=== PATIENT | male | born 1945 | race Caucasian/White ===

== ENCOUNTER 2017-03-10 16:11 | Emergency (ER) | payer OTHER ==
[~2017-03-10] VITALS: Ht 165.1 cm; Wt 103.9 kg
[~2017-03-10 16:11] MED LIST: ASPI81TA28 PO; LSN20 PO; MELO7.5T5 PO; METO50TA7 PO; TEMA15CA4 PO
[2017-03-10 16:26] VITALS: TEMP 36.4; Ht 165.1 cm; Wt 103.9 kg
[2017-03-10] MEDS ORDERED: TRAMADOL HCL 50 MG TAB PO STA (17:57)
[2017-03-10] MEDS ORDERED: LIDODERM (LIDOCAINE) PATCH 5% TD STA (17:57)
[2017-03-10] MEDS ORDERED: KETOROLAC TROMETHAMINE 60 MG/2 ML VIAL IM STA (17:57)
[2017-03-10] MEDS ORDERED: DEXAMETHASONE SOD INJ 10 MG/ML VIAL IM ONE (18:00)
[2017-03-10] MEDS ORDERED: ACET650S10 (18:00)
[2017-03-10] MEDS ORDERED: TRAMADOL HCL 50 MG HOME PACK PO ONE (18:00)
--- NOTE | 2017-03-10 18:00 | EMERGENCY ROOM VISIT NOTE ---
History Report prepared by John: Briseyda Wright Under the Supervision of: Dr. Cedric Urias M.D. First contact with patient: 17:46 Chief Complaint: LEG PAIN,LEG INJURY Stated Complaint: RT BACK OF LEG PAIN History of Present Illness The patient is a 71 year old male who presents to the Emergency Room with complaints of persistent right leg pain starting 3 weeks ago. The pain started after the patient fell backwards into a trailer while he was smoothing out some ruts in his driveway. His notes that he has also been shoveling big rocks recently. The pain goes down the back of his right leg into his toes. He has been taking Tylenol for the pain. He is able to walk. The pain is not that bad in the morning, but worsens throughout the day. He does not have any other complaints. He has a history of arthritis. He is "on the border" of being diabetic. Source of History: patient, spouse/significant other Onset: 3 weeks ago Position: leg (right) Quality: other (pain) Timing: other (persistent) Modifying Factors (Worsening): other (throughout the day) Modifying Factors (Relieving): other (in the morning) Associated Symptoms: No back pain Review of Systems See HPI for pertinent positives & negatives. A total of 10 systems reviewed and were otherwise negative. Past Medical & Surgical Medical Problems: (1) Arthritis (2) Parkinson disease Surgical Problems: (1) Post-operative state Family History No pertinent family history stated. Social History Smoking Status: Never Smoker Marital Status: Housing Status: lives with family Occupation Status: retired Current/Historical Medications Scheduled Aspirin (Aspirin Ec), 81 MG PO DAILY Lidocaine (Lidoderm Patch 5%), 1 PATCH TD DAILY Lisinopril (Lisinopril), 20 MG PO DAILY Meloxicam (Mobic), 7.5 MG PO DAILY Metoprolol Succ (Toprol Xl) (Toprol-Xl), 50 MG PO DAILY Temazepam (Restoril), 15 MG PO HS Scheduled PRN Tramadol (Ultram), 1-2 TABS PO Q6 PRN for Pain Miscellaneous Medications Acetaminophen (Tylenol) Allergies Uncoded Allergies: Oxycodone IR (Adverse Reaction, Intermediate, DELIRIUM, 01/22/15) Physical Exam Vital Signs Date Time Temp Pulse Resp B/P (MAP) Pulse Ox O2 Delivery O2 Flow Rate FiO2 10/4/17 19:35 69 17 200/100 94 03/10/17 16:26 36.4 81 20 199/88 98 Room Air Physical Exam GENERAL: Patient is a healthy-appearing well-nourished male HEAD: Normocephalic atraumatic EYES: Ocular movements intact pupils equal and react to light OROPHARYNX mucous membranes are moist no exudates present no erythema or edema present NECK: Supple no nuchal rigidity CHEST: Good equal expansion LUNGS: Clear and equal to auscultation CARDIAC: Normal S1 and S2 ABDOMEN: Soft nontender no guarding BACK: No CVA tenderness EXTREMITIES: Point tenderness to the posterior of the right proximal femur. Able to walk on the leg. Good ROM of the hip free from pain. NEURO: Patient is following commands and answering questions appropriately. Alert and oriented x3 Cranial Nerves 2-12 grossly intact Medical Decision & Procedures ER Provider Diagnostic Interpretation: X-ray results as stated below per interpretation by me and the radiologist: PELVIS 1 OR 2 VIEW ROUTINE, R FEMUR 2 VIEWS ROUTINE HISTORY: 71 years-old Male Pt c/o Rt hip pain acute right hip pain without known trauma. 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 The bones are mildly demineralized. Proliferative marginal spurring involves the right greater than left greater tuberosities. No acute fracture or dislocation is identified. Advanced degenerative changes involve the lower lumbar spine. Vascular calcifications are noted. FEMUR: Moderate tricompartmental osteoarthritis of the knee. No acute fracture or dislocation. IMPRESSION: 1. No acute fracture or dislocation of the pelvis or right femur. 2. Severe right and moderate left hip osteoarthritis. The above report was generated using voice recognition software. It may contain grammatical, syntax or spelling errors. Electronically signed by: Tobias Rodriguez M.D. 03/10/2017 6:45 PM Dictated Date/Time: 03/10/2017 6:42 PM Laboratory Results Test 03/10/17 18:42 Bedside Glucose 72 mg/dl (70-99) Labs reviewed by ED physician. Medications Administered Medications (Trade) Dose Ordered Sig/Margaret Route Start Time Stop Time Status Last Admin Dose Admin Dexamethasone Sodium Phosphate (Decadron Inj) 10 mg NOW ONCE IM 03/10/17 18:00 03/10/17 18:01 DC 03/10/17 18:43 10 MG Ketorolac Tromethamine (Toradol Inj) 60 mg NOW STAT IM 03/10/17 17:57 03/10/17 18:00 DC 03/10/17 18:45 60 MG Lidocaine (Lidoderm Patch 5%) 1 patch NOW STAT TD 03/10/17 17:57 03/10/17 18:00 DC 03/10/17 18:42 1 PATCH Tramadol HCl (Ultram Tab) 50 mg NOW STAT PO 03/10/17 17:57 03/10/17 18:00 DC 03/10/17 18:44 50 MG Tramadol HCl (Ultram Home Pack) 1 homepack UD ONCE PO 03/10/17 18:00 03/10/17 18:01 DC 03/10/17 19:33 1 HOMEPACK ED Course 1747: Past medical records reviewed. The patient was evaluated in room C12B. A complete history and physical examination was performed. 1757: Ultram Tab 50 mg PO, Lidocaine 1 patch TD, Toradol Inj 60 mg IM. 1800: Tramadol HCl 1 homepack PO, Decadron Inj 10 mg IM. 1900: Upon reexamination the patient is resting comfortably. I discussed results and treatment plan with the patient. He verbalizes agreement and understanding. The patient is ready for discharge. Medical Decision Differential diagnosis: Etiologies such as fracture, dislocation, neurovascular compromise, compartment syndrome, soft tissue injury, as well as others were entertained. This is a 71-year-old male who presents emergency department complaining of right sciatica pain. The patient irritated this several weeks ago. He is asking for pain medication. The patient is able to walk on the leg and does not demonstrate any weakness. I do believe he is suffering from sciatica and for this reason he was given Decadron. He has a normal blood sugar here in the emergency department. He was also given Ultram as well as a Lidoderm patch. X- rays do not show any evidence of acute fracture dislocation. The patient does have a large amount of arthritis in that hip. Based on this finding I will have the patient follow-up with [facility] orthopedics. Patient and are in agreement with the treatment plan. Medication Reconcilliation Current Medication List: was personally reviewed by me Blood Pressure Screening Patient's blood pressure: Elevated blood pressure Blood pressure disposition: Referred to PCP Impression Primary Impression: Sciatica without back pain Scribe Attestation The scribe's documentation has been prepared under my direction and personally reviewed by me in its entirety. I confirm that the note above accurately reflects all work, treatment, procedures, and medical decision making performed by me. Departure Information Dispostion Home / Self-Care Prescriptions Lidocaine (Lidoderm Patch 5%) 1 Ea Tdsy 1 PATCH TD DAILY for 30 Days, #30 PATCH Prov: Cedric Urias MD 03/10/17 Tramadol (Ultram) 50 Mg Tab 1-2 TABS PO Q6 Y for Pain, #14 TAB Prov: Cedric Urias MD 03/10/17 Referrals Darwin Villalba M.D. (PCP) Danielito Christianson M.D. Forms HOME CARE DOCUMENTATION FORM, IMPORTANT VISIT INFORMATION Patient Instructions ED Sciatica, My [facility] Additional Instructions Follow up with Dr Christianson's office You were found to have an elevated blood pressure today (>120 sytolic or >90 diastolic). Per medicare guidelines, you need to follow up with this blood pressure screening with your Primary Care Physician (PCP). For a new PCP call [phone]. Take 1000 mg Tylenol every 6 hours Take Ultram for breakthrough pain You have been examined and treated today on an emergency basis only. This is not a substitute for, or an effort to provide, complete comprehensive medical care. It is impossible to recognize and treat all injuries or illnesses in a single emergency department visit. It is therefore important that you follow up closely with Dr Villalba. Call as soon as possible for an appointment. Thank you for your time and consideration. I look forward to speaking with you again soon. Please don't hesitate to call us if you have any questions. Problem Qualifiers Primary Impression: Sciatica without back pain Laterality: right Qualified Codes: M54.31 - Sciatica, right side
--- NOTE | 2017-03-10 18:47 | DIAGNOSTIC IMAGING REPORT ---
PELVIS 1 OR 2 VIEW ROUTINE, R FEMUR 2 VIEWS ROUTINE HISTORY: 71 years-old Male Pt c/o Rt hip pain acute right hip pain without known trauma. 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 The bones are mildly demineralized. Proliferative marginal spurring involves the right greater than left greater tuberosities. No acute fracture or dislocation is identified. Advanced degenerative changes involve the lower lumbar spine. Vascular calcifications are noted. FEMUR: Moderate tricompartmental osteoarthritis of the knee. No acute fracture or dislocation. IMPRESSION: 1. No acute fracture or dislocation of the pelvis or right femur. 2. Severe right and moderate left hip osteoarthritis. The above report was generated using voice recognition software. It may contain grammatical, syntax or spelling errors. Electronically signed by: Tobias Rodriguez M.D. 03/10/2017 6:45 PM Dictated Date/Time: 03/10/2017 6:42 PM
[2017-03-10] MEDS ORDERED: NF656 TD (19:12)
[2017-03-10] MEDS ORDERED: TRAM-10 PO (19:12)
[2017-03-10 19:35] VITALS: BP 200/100; PULSE 69; O2SAT 94
== END 2017-03-10 19:35 | disposition home or self-care (01) ==
LOC: C.EDB 16:11 → C.EDC 19:35
DX: M54.31 Sciatica, right side (principal); M19.90 Unspecified osteoarthritis, unspecified site; G20 Parkinson's disease; Z79.82 Long term (current) use of aspirin; Z79.899 Other long term (current) drug therapy

== ENCOUNTER 2021-12-23 10:36 | Inpatient (IN) ==
[2021-12-23] MEDS ORDERED: ALBUT/IPRATROP 3MG/0.5MG NEB 3 ML VIAL NEB STA (10:42)
[2021-12-23 11:16] LABS: Hematocrit (blood only) 46.9 % (40.1-51.0); Hemoglobin 15.1 g/dl (14.0-18.0); Mean Corpuscular Hemoglobin 28.7 pg (25.0-34.0); Mean Corpuscular Hgb Conc 32.2 g/dL (32.0-36.0); Mean Corpuscular Volume 89.2 fL (80.0-100.0); Mean Platelet Volume 9.9 fL (9.4-12.4); Platelet Count 344 K/uL (130-400); RDW Coefficient of Variation 14.1 % (11.5-14.5); RDW Standard Deviation 45.6 fL (36.4-46.3); Red Blood Count 5.26 M/uL (4.63-6.08); White Blood Count 17.34 K/ul (4.8-10.8)
--- NOTE | 2021-12-23 11:17 | Emergency Department Note ---
Impression & Plan Acute respiratory failure with hypoxia, Lactic acidosis, ST elevation myocardial infarction (STEMI), Acidemia, Leukocytosis ED Provider Note NAME: CHLOÉ MORE AGE: 76 SEX: M ARRIVES VIA: Ambulance INFORMANT: Patient, , EMS ED PROVIDER(S): Chapito Blair MD CHIEF COMPLAINT: Shortness of breath, chest pain. PLAN: Disposition: Admit MEDICAL DECISION MAKING: The patient is a pleasant 76-year-old gentleman with a past medical history of hypertension who presents to the emergency department critically ill via EMS for acute respiratory failure with hypoxia. EMS was called to the home because of worsening breathing and chest pain/pressure in the chest that the patient was complaining of this morning around 9 AM. The patient's symptoms occur in the setting of having increased cough, congestion wheezing over the past several days in the setting of being at camp and black motion and we admits he suspects he got excessive smoke exposure. They did arrange for a primary care doctor's appointment for his cough and chest pain associated with the cough and her to be seen this Wednesday. However last night he was feeling worse and this morning was uncomfortable and took his blood pressure per his and noticed it was 180/100s. He then attempted to lay down to go back to sleep and became acutely short of breath and EMS called. Patient's reports he began to appear blue and was minimally responsive though she still noticed a pulse. EMS found the patient to be hypoxic to 60% and did respond 200% O2 via nonrebreather. He was given DuoNeb for wheezing on exam. He was given nitroglycerin x2 for his chest pain however aspirin was not administered due to concern for aspiration. He was trialed on CPAP but was not able to tolerate this and was brought to emergency department on nonrebreather. This provider discussed case with EMS crew via medical command COVERAGE SPECIALIST RN. The patient was denies any symptoms of exertional chest pain prior to his respiratory illness. He denies measured fevers. On arrival, the patient is in acute respiratory distress. Temp 35.9 orally. Respiratory rate in the 30s blood pressure 80s/70s and O2 97% on 100%. Skin diaphoretic, clammy, mottled. Lungs with scattered rhonchi and expiratory wheezes bilaterally, right greater than left. He was transitioned to BiPAP with inline DuoNeb and his respiratory status immediately improved. Patient did complain ongoing chest pain, which was reproducible upon palpation of CW. I did perform a limited bedside cardiac ultrasound and lung ultrasound which demonstrated suspicion for moderate-to severely reduced LV function. There is asymmetric US B-lines right greater than left suggestive of pneumonia versus asymmetric pulmonary edema. EKG demonstrates question of afib vs atrial ectopic rhythm with new RBBB and question of subtle anterior ST elevation. WBC 17.3K with neutrophil predominance and left shift. H/H 15.1/46.9. Platelets wnl. Chemistry without acidosis. Electrolytes unremarkable. LFTs without significant abnormality. Troponin negative/undetectable. VBG with pH of 7.18 and PCO2 of 53 prior to initiation of Bipap. Following approximately 1 hour of Bipap ABG performed and demonstrated improved acidemia to 7.34 with component of respiratory compensation with pCO fo 27. Base deficit persists at 11. Chemistry with Agap metabolic acidosis/lactic acidosis with lactate of 8, Agap 17 and bicarbonate of 19. Creatinine of 1.48 without recent values for comparison. Sodium corrects to 134 given glucose of 340. Initial HS troponin 4K. LFTs witho ut significant abnormalities. Lipase wnl. Procalcitonin is not significantly elevated. Covid-19 RNA, NAAT negative. Blood cultures drawn and empiric ABX (Cefepime/Vancomycin) ordered given report of several days of preceding cough and congestion. 324mg ASA given. While respiratory status had improved BP began to decline to 70s/50s. Patient was given IVF cautiously while monitoring respiratory status which the patient tolerated for a respiratory standpoint. 30cc/kg deferred given picture of CHF and likely will require diuresis. There was only transient/marginal response to IVF and so levophed ordered. Given EKG with evidence of new systolic heart failure case was discussed with Dr. Garg on-call. Appreciate consultation/assistance at the bedside. We agree with plan for cathlab intervention given evidence of acute-subacute CO. Dr. Garg reviewed with Dr. Choudhury, interventional cardiology and patient was taken to label maker for urgent procedure. BP improved to 89/70 (MAP 70s) with respiratory status stable on minimal Levophed. Patient and his were updated and agree with plan. Case was also discussed with Dr. Fong, [facility] [place], who evaluated the patient at the bedside for anticipated admission following cathlab intervention. Following transfer to the cathlab, assistance was requested by Dr. Choudhury for elective intubation for airway protection given cardiogenic shock with findings of 100% LAD occlusion and severe multi-vessel disease requiring transfer to tertiary care center for CABG. Intubation performed per procedure note below. Triage Nursing notes reviewed and agree them. Prior medical records reviewed Vital Signs: reviewed and remarkable for hypotension, hypoxia, tachypnea. Differential diagnosis: Reactive airway disease, pneumonia, pneumothorax, COPD, CHF, infections, cardiac ischemia, pulmonary embolism, musculoskeletal, gastrointestinal, as well as other pathologies. ER treatment provided: See below. Diagnostics interpreted by me: ECG: Question of atrial fibrillation versus atrial ectopic rhythm, 66 bpm, right bundle branch block, subtle ST elevation. QTc 511, QRS 170 Cardiac Monitoring: An order for continuous cardiac monitoring was placed and demonstrated question of atrial fibrillation versus atrial ectopic rhythm, 66 bpm, PACs Laboratory studies: See below Imaging studies: See below Consultation(s): Dr. Garg, [place] cardiology on-call. Dr. Fong, [facility] [place]. [place] Choudhury, Interventional cardiology. HPI: The patient is a pleasant 76-year-old gentleman with a past medical history of hypertension who presents to the emergency department critically ill via EMS for acute respiratory failure with hypoxia. EMS was called to the home because of worsening breathing and chest pain/pressure in the chest that the patient was complaining of this morning around 9 AM. The patient's symptoms occur in the setting of having increased cough, congestion wheezing over the past several days in the setting of being at camp and black motion and we admits he suspects he got excessive smoke exposure. They did arrange for a primary care doctor's appointment for his cough and chest pain associated with the cough and her to be seen this Wednesday. However last night he was feeling worse and this morning was uncomfortable and took his blood pressure per his and noticed it was 180/100s. He then attempted to lay down to go back to sleep and became acutely short of breath and EMS called. Patient's reports he began to appear blue and was minimally responsive though she still noticed a pulse. EMS found the patient to be hypoxic to 60% and did respond 200% O2 via nonrebreather. He was given DuoNeb for wheezing on exam. He was given nitroglycerin x2 for his chest pain however aspirin was not administered due to concern for aspiration. He was trialed on CPAP but was not able to tolerate this and was brought to emergency department on nonrebreather. This provider discussed case with EMS crew via medical command COVERAGE SPECIALIST RN. The patient was denies any symptoms of exertional chest pain prior to his respiratory illness. He denies measured fevers. ROS: See above HPI for pertinent positives & negatives. A total of 10 systems reviewed and were otherwise negative. VITALS:See Below PHYSICAL EXAMINATION: GENERAL: Awake, alert, ill-appearing, in no distress HENT: Normocephalic, atraumatic. Oropharynx with dry mucous membranes and otherwise unremarkable. EYES: Normal conjunctiva. Sclera non-icteric. NECK: Supple. No nuchal rigidity. FROM. No JVD. RESPIRATORY: Scattered rhonchi and expiratory wheezes bilaterally, right greater than left. Increased WOB with accessory muscle use. CARDIAC: Regular rate, irregular rhythm. Extremities cool, clammy, mottled. Pulses equal. ABDOMEN: Soft, non-distended. No tenderness to palpation. No rebound or guarding. No masses. RECTAL: Deferred. MUSCULOSKELETAL: Chest examination reveals reproducible anterior CW tenderness. The back is symmetrical on inspection without obvious abnormality. There is no CVA tenderness to palpation. No joint edema. LOWER EXTREMITIES: Calves are equal size bilaterally and non-tender. No edema. No discoloration. NEURO: Normal sensorium. No sensory or motor deficits noted. SKIN: Diaphoretic. Clammy. Mottled. No rash or jaundice noted. ED COURSE: Procedures: Endotracheal Intubation Indication: elective intubation for airway protection for cardiogenic shock. The patient was on 100% oxygen via Bipap prior to the procedure. Suction, airway equipment, RSI drugs, respiratory equipment, and appropriate personnel were prepared prior to the initiation of the procedure. Induction was performed with Etomidate and paralysis with Succinylcholine. After observing the clinical benefit of the medications, the airway was easily visualized utilizing a Mac 3 GlideScope. A 7.5 size ETT tube was placed atraumatically to 22 cm using standard technique. The cuff inflated without signs of malfunction. There were bilateral breath sounds, positive colormetric change, no gastric sounds, a good capnography waveform. Post procedure pulse oximetry was variable 75-85% in the setting of hemodynamic instability. Tube placement confirmed on fluoro. Sedation per Cathlab team. Critical Care: I have personally spent greater than 95 minutes of critical care time in the direct management of this patient. This includes bedside care, interpretation of diagnostic studies, and testing, discussion with consultants, patient, and family members, and other required patient management activities. This 95 minutes is in excess of all separately billable procedures. Chapito Blair MD Past Med/Surg History Medical History (Updated 12/23/21 @ 22:55 by Chapito Blair MD) Arthritis Gonzalez's palsy Cervical spine fracture 2004 - s/p ORIF [facility] Chewing tobacco nicotine dependence Essential hypertension History of alcoholism Parkinson disease vs chronic benign tremor Type 2 diabetes mellitus Surgical History (Updated 12/23/21 @ 13:20 by Tiburcio Fong) H/O cervical spine surgery History of carpal tunnel release History of total left knee replacement S/P appendectomy Family History (Updated 12/23/21 @ 13:17 by Tiburcio Fong) Father Coronary heart disease Mother Brain cancer Brother Cancer Brother Suicide Social History (Updated 12/23/21 @ 13:18 by Tiburcio Fong) Smoking Status: Never smoker Tobacco Type: Smokeless Tobacco (Dip or Chew) Hx Alcohol Use: Yes Alcohol type: beer Alcohol type Comment: 1 case/day x many years; quit 30+ years ago Preferred Language: Greek marital status: Current Living Situation: Spouse Current Living Situation Comment: lives with in [facility] current occupational status: retired current occupation: worked for [employer] How many Children do You have: 2 Feels Safe at Home: Yes Allergies Allergies Allergy/AdvReac Type Severity Reaction Status Date / Time oxycodone [From OxyIR] AdvReac Severe Delirium Unverified 12/23/21 11:44 Home Meds Home Medications Medication Instructions Recorded Confirmed amlodipine 10 mg tablet 10 mg PO QAM 12/23/21 12/23/21 lisinopril 40 mg tablet 40 mg PO BID 12/23/21 12/23/21 meloxicam 15 mg tablet 15 mg PO QAM 12/23/21 12/23/21 metformin 500 mg tablet 500 mg PO BIDM 12/23/21 12/23/21 metoprolol succinate 50 mg 50 mg PO QAM 12/23/21 12/23/21 tablet,extended release 24 hr phenylephrine HCl 10 mg tablet 10 mg PO QAM 12/23/21 12/23/21 (Sudafed PE) temazepam 15 mg capsule 15 mg PO HS PRN Insomnia 12/23/21 12/23/21 Results & Data (ED) Vital Signs Vital Signs - 24 hr 12/23/21 10:44 12/23/21 10:45 12/23/21 10:45 Temperature 35.9 C L Temperature Source Axillary Pulse Rate 62 Pulse Rate [Apical] Respiratory Rate 29 H Respiratory Effort / Characteristics Labored Respiratory Depth Shallow Respiratory Pattern Blood Pressure 89/70 L Blood Pressure [Left Arm] Blood Pressure Mean 76 Blood Pressure Mean [Left Arm] Pulse Oximetry 92 91 Oxygen Delivery Method Non-rebreather Non-rebreather Oxygen Flow Rate 15 15 Fraction of Inspired Oxygen Sepsis Recent Fever Within 48 Hours Yes Sepsis New/Unexplained Change in Mental Status No Sepsis Action Taken by Nursing Physician Notified 12/23/21 11:04 12/23/21 11:04 12/23/21 11:18 Temperature Temperature Source Pulse Rate 64 Pulse Rate [Apical] 58 L 66 Respiratory Rate 23 26 H 26 H Respiratory Effort / Characteristics Spontaneous Spontaneous Respiratory Depth Normal Respiratory Pattern Blood Pressure Blood Pressure [Left Arm] 80/51 L Blood Pressure Mean Blood Pressure Mean [Left Arm] 60 Pulse Oximetry 97 97 94 Oxygen Delivery Method BiPAP CPAP Oxygen Flow Rate Fraction of Inspired Oxygen 60 60 Sepsis Recent Fever Within 48 Hours Sepsis New/Unexplained Change in Mental Status Sepsis Action Taken by Nursing 12/23/21 12:30 12/23/21 12:33 12/23/21 12:36 Temperature Temperature Source Pulse Rate 64 62 Pulse Rate [Apical] 65 Respiratory Rate 23 23 27 H Respiratory Effort / Characteristics Spontaneous Respiratory Depth Respiratory Pattern Tachypnea Blood Pressure 89/70 L Blood Pressure [Left Arm] 89/70 L Blood Pressure Mean Blood Pressure Mean [Left Arm] 76 Pulse Oximetry 94 94 100 Oxygen Delivery Method CPAP CPAP Oxygen Flow Rate Fraction of Inspired Oxygen 100 Sepsis Recent Fever Within 48 Hours Sepsis New/Unexplained Change in Mental Status Sepsis Action Taken by Nursing Laboratory Data Attestation: I reviewed the patient's lab results. Result diagrams: 12/23/21 14:28 12/23/21 14:28 Lab Results 12/23/21 12/23/21 12/23/21 Range/Units 10:56 11:00 11:00 WBC 17.34 H (4.8-10.8) K/ul RBC 5.26 (4.63-6.08) M/uL Hgb 15.1 (14.0-18.0) g/dl POC Hgb (14.0-18.0) g/dl Hct 46.9 (40.1-51.0) % POC Hct (42-52) % MCV 89.2 (80.0-100.0) fL MCH 28.7 (25.0-34.0) pg MCHC 32.2 (32.0-36.0) g/dL RDW Std Deviation 45.6 (36.4-46.3) fL RDW Coeff of Suy[place] 14.1 (11.5-14.5) % Plt Count 344 (130-400) K/uL MPV 9.9 (9.4-12.4) fL Immature Gran % (Auto) 0.7 % Neut % (Auto) 58.9 % Lymph % (Auto) 30.3 % Borden % (Auto) 7.5 % Eos % (Auto) 2.1 % Baso % (Auto) 0.5 % Neut # (Auto) 10.21 H (1.4-6.5) K/uL Lymph # (Auto) 5.25 H (1.2-3.4) K/uL Borden # (Auto) 1.30 H (0.24-0.82) K/uL Eos # (Auto) 0.37 (0-0.50) K/uL Baso # (Auto) 0.09 (0-0.2) K/uL Immature Gran # (Auto) 0.12 H (0.00-0.02) K/uL Echinocytes 1+ POC pH (7.35-7.45) POC pCO2 (35-46) mmHg POC pO2 (80-95) mmHg POC HCO3 (19-24) nav/L POC Total CO2 (24-31) mmol/L POC Base Excess (-9-1.8) nav/L POC ABG O2 Sat (90-95) % VBG pH (7.36-7.41) VBG pCO2 (38-50) mmHg VBG pO2 mmHg VBG HCO3 mmol/L VBG O2 Saturation % VBG Base Excess mEq/L POC Sodium (135-144) mmol/L Sodium 128 L (136-145) mmol/L POC Potassium (3.3-5.0) mmol/L Potassium 3.2 L (3.5-5.1) mmol/L Chloride 92 L (98-107) mmol/L Carbon Dioxide 19 L (21-32) mmol/L Anion Gap 17 H (3-11) BUN 10 (6-23) mg/dl Creatinine 1.48 H (0.6-1.4) mg/dl Est Cr Clr Drug Dosing Not Reportable Est GFR ( Amer) 52.9 ml/min Est GFR (Non-Af Amer) 45.6 ml/min BUN/Creatinine Ratio 6.8 L (10-20) Glucose 340 H* (70-99(Fasting)) mg/dl Lactate (0.4-2.0) mmol/L Calcium 10.2 H (8.5-10.1) mg/dl Phosphorus 4.7 (2.5-4.9) mg/dl Magnesium 1.9 (1.7-2.4) mg/dl Total Bilirubin 0.7 (0.2-1.0) mg/dl AST 56 H (13-39) U/L ALT 24 (7-52) U/L Alkaline Phosphatase 111 H (34-104) U/L Total Creatine Kinase (30-223) U/L Troponin I High Sens 4078.8 H* (0-20) pg/ml Total Protein 7.0 (6.0-8.3) gm/dl Albumin 3.9 (3.4-5.0) gm/dl Globulin 3.1 (2.5-4.0) gm/dl Albumin/Globulin Ratio 1.3 (0.9-2) Lipase 41 (11-82) U/L Procalcitonin (0-0.5) ng/ml SARS-CoV-2, RNA, NAAT NEGATIVE (NEGATIVE) 12/23/21 12/23/21 12/23/21 Range/Units 11:00 11:01 11:01 WBC (4.8-10.8) K/ul RBC (4.63-6.08) M/uL Hgb (14.0-18.0) g/dl POC Hgb (14.0-18.0) g/dl Hct (40.1-51.0) % POC Hct (42-52) % MCV (80.0-100.0) fL MCH (25.0-34.0) pg MCHC (32.0-36.0) g/dL RDW Std Deviation (36.4-46.3) fL RDW Coeff of Suyapa (11.5-14.5) % Plt Count (130-400) K/uL MPV (9.4-12.4) fL Immature Gran % (Auto) % Neut % (Auto) % Lymph % (Auto) % Borden % (Auto) % Eos % (Auto) % Baso % (Auto) % Neut # (Auto) (1.4-6.5) K/uL Lymph # (Auto) (1.2-3.4) K/uL Borden # (Auto) (0.24-0.82) K/uL Eos # (Auto) (0-0.50) K/uL Baso # (Auto) (0-0.2) K/uL Immature Gran # (Auto) (0.00-0.02) K/uL Echinocytes POC pH (7.35-7.45) POC pCO2 (35-46) mmHg POC pO2 (80-95) mmHg POC HCO3 (19-24) nav/L POC Total CO2 (24-31) mmol/L POC Base Excess (-9-1.8) nav/L POC ABG O2 Sat (90-95) % VBG pH (7.36-7.41) VBG pCO2 (38-50) mmHg VBG pO2 mmHg VBG HCO3 mmol/L VBG O2 Saturation % VBG Base Excess mEq/L POC Sodium (135-144) mmol/L Sodium (136-145) mmol/L POC Potassium (3.3-5.0) mmol/L Potassium (3.5-5.1) mmol/L Chloride (98-107) mmol/L Carbon Dioxide (21-32) mmol/L Anion Gap (3-11) BUN (6-23) mg/dl Creatinine (0.6-1.4) mg/dl Est Cr Clr Drug Dosing Est GFR ( Amer) ml/min Est GFR (Non-Af Amer) ml/min BUN/Creatinine Ratio (10-20) Glucose (70-99(Fasting)) mg/dl Lactate 8.0 H* (0.4-2.0) mmol/L Calcium (8.5-10.1) mg/dl Phosphorus (2.5-4.9) mg/dl Magnesium (1.7-2.4) mg/dl Total Bilirubin (0.2-1.0) mg/dl AST (13-39) U/L ALT (7-52) U/L Alkaline Phosphatase (34-104) U/L Total Creatine Kinase 271 H (30-223) U/L Troponin I High Sens (0-20) pg/ml Total Protein (6.0-8.3) gm/dl Albumin (3.4-5.0) gm/dl Globulin (2.5-4.0) gm/dl Albumin/Globulin Ratio (0.9-2) Lipase (11-82) U/L Procalcitonin 0.07 (0-0.5) ng/ml SARS-CoV-2, RNA, NAAT (NEGATIVE) 12/23/21 12/23/21 Range/Units 11:01 12:05 WBC (4.8-10.8) K/ul RBC (4.63-6.08) M/uL Hgb (14.0-18.0) g/dl POC Hgb 13.6 L (14.0-18.0) g/dl Hct (40.1-51.0) % POC Hct 40 L (42-52) % MCV (80.0-100.0) fL MCH (25.0-34.0) pg MCHC (32.0-36.0) g/dL RDW Std Deviation (36.4-46.3) fL RDW Coeff of Suy[place] (11.5-14.5) % Plt Count (130-400) K/uL MPV (9.4-12.4) fL Immature Gran % (Auto) % Neut % (Auto) % Lymph % (Auto) % Borden % (Auto) % Eos % (Auto) % Baso % (Auto) % Neut # (Auto) (1.4-6.5) K/uL Lymph # (Auto) (1.2-3.4) K/uL Borden # (Auto) (0.24-0.82) K/uL Eos # (Auto) (0-0.50) K/uL Baso # (Auto) (0-0.2) K/uL Immature Gran # (Auto) (0.00-0.02) K/uL Echinocytes POC pH 7.34 L (7.35-7.45) POC pCO2 27 L (35-46) mmHg POC pO2 80 (80-95) mmHg POC HCO3 15 L (19-24) nav/L POC Total CO2 16 L (24-31) mmol/L POC Base Excess -11.0 L (-9-1.8) nav/L POC ABG O2 Sat 95.0 (90-95) % VBG pH 7.18 L (7.36-7.41) VBG pCO2 53 H (38-50) mmHg VBG pO2 28 mmHg VBG HCO3 20 mmol/L VBG O2 Saturation < 60.0 % VBG Base Excess -8.9 mEq/L POC Sodium 126 L (135-144) mmol/L Sodium (136-145) mmol/L POC Potassium 3.3 (3.3-5.0) mmol/L Potassium (3.5-5.1) mmol/L Chloride (98-107) mmol/L Carbon Dioxide (21-32) mmol/L Anion Gap (3-11) BUN (6-23) mg/dl Creatinine (0.6-1.4) mg/dl Est Cr Clr Drug Dosing Est GFR ( Amer) ml/min Est GFR (Non-Af Amer) ml/min BUN/Creatinine Ratio (10-20) Glucose (70-99(Fasting)) mg/dl Lactate (0.4-2.0) mmol/L Calcium (8.5-10.1) mg/dl Phosphorus (2.5-4.9) mg/dl Magnesium (1.7-2.4) mg/dl Total Bilirubin (0.2-1.0) mg/dl AST (13-39) U/L ALT (7-52) U/L Alkaline Phosphatase (34-104) U/L Total Creatine Kinase (30-223) U/L Troponin I High Sens (0-20) pg/ml Total Protein (6.0-8.3) gm/dl Albumin (3.4-5.0) gm/dl Globulin (2.5-4.0) gm/dl Albumin/Globulin Ratio (0.9-2) Lipase (11-82) U/L Procalcitonin (0-0.5) ng/ml SARS-CoV-2, RNA, NAAT (NEGATIVE) Administered Medications Discontinued Medications Albuterol (Albut/Ipratrop 3mg/0.5mg Neb 3 Ml Vial) 3 ml NEB NOW STA; Protocol Stop: 12/23/21 10:43 Last Admin: 12/23/21 11:03 Dose: 3 ml Documented By: RAÚL Aspirin (Aspirin Chew 324 Mg) 324 mg PO NOW STA Stop: 12/23/21 11:52 Last Admin: 12/23/21 12:10 Dose: 324 mg Documented By: MYRNA Fentanyl Citrate (Fentanyl Citrate 100 Mcg/2 Ml Vial) Confirm Administered Dose 100 mcg .ROUTE .STK-MED ONE Stop: 12/23/21 12:22 Last Increment: 12/23/21 15:40 Dose: 50 mcg Documented By: ADOLFO Fentanyl Citrate (Fentanyl Citrate 100 Mcg/2 Ml Vial) Confirm Administered Dose 100 mcg .ROUTE .STK-MED ONE Stop: 12/23/21 13:53 Last Admin: 12/23/21 15:41 Dose: 100 mcg Documented By: ADOLFO Fentanyl Citrate (Fentanyl Citrate 100 Mcg/2 Ml Vial) Confirm Administered Dose 100 mcg .ROUTE .STK-MED ONE Stop: 12/23/21 15:09 Last Admin: 12/23/21 15:42 Dose: 100 mcg Documented By: ADOLFO Cefepime HCl (Maxipime) 2,000 mg in 20 mls @ 5 mls/min IV NOW STA; Protocol Stop: 12/23/21 11:36 Last Admin: 12/23/21 11:39 Dose: 5 mls/min Documented By: MYRNA Norepinephrine Bitartrate (Levophed/D5w) 4 mg in 250 mls @ 20.569 mls/hr IV .[id number] DARRELL; Protocol Stop: 01/22/22 11:44 Last Admin: 12/23/21 11:52 Dose: 0.05 mcg/kg/min, 20.6 mls/hr Documented By: MYRNA Co-signed By: EBONY Acetaminophen (Ofirmev) 1,000 mg in 100 mls @ 400 mls/hr IV NOW STA Stop: 12/23/21 12:06 Last Admin: 12/23/21 12:11 Dose: 400 mls/hr Documented By: MYRNA Midazolam HCl (Midazolam Hcl 1 Mg/Ml 2ml Vial) Confirm Administered Dose 2 mg .ROUTE .STK-MED ONE Stop: 12/23/21 12:22 Last Increment: 12/23/21 15:41 Dose: 1 mg Documented By: [facility] Midazolam HCl (Midazolam Hcl 1 Mg/Ml 2ml Vial) Confirm Administered Dose 2 mg .ROUTE .STK-MED ONE Stop: 12/23/21 13:51 Last Admin: 12/23/21 15:41 Dose: 2 mg Documented By: [facility] Midazolam HCl (Midazolam Hcl 1 Mg/Ml 2ml Vial) Confirm Administered Dose 2 mg .ROUTE .STK-MED ONE Stop: 12/23/21 14:13 Last Admin: 12/23/21 15:42 Dose: 2 mg Documented By: [facility] Midazolam HCl (Midazolam Hcl 1 Mg/Ml 2ml Vial) Confirm Administered Dose 2 mg .ROUTE .STK-MED ONE Stop: 12/23/21 14:52 Last Admin: 12/23/21 15:42 Dose: 2 mg Documented By: [facility] Midazolam HCl (Midazolam Hcl 1 Mg/Ml 2ml Vial) Confirm Administered Dose 2 mg .ROUTE .STK-MED ONE Stop: 12/23/21 15:09 Last Admin: 12/23/21 15:42 Dose: 2 mg Documented By: [facility] Imaging Data Radiologist's Impression: Chest X-Ray 12/23/21 10:40 SINGLE VIEW CHEST CLINICAL HISTORY: Atypical chest pain. FINDINGS: An AP, portable, upright chest radiograph is compared to study dated 08/14/2014. The examination is degraded by portable technique and apical lordotic positioning. The heart is enlarged. There is pulmonary vascular congestion. There are asymmetric airspace opacities, right greater than left. Small pleural effusions are suggested with bibasilar consolidation. No pneumothorax is seen. The skeletal structures are osteopenic. The bony thorax is grossly intact. Fusion hardware is noted in the cervical spine. IMPRESSION: 1. Cardiomegaly with evidence of congestive failure. 2. Slightly asymmetric bilateral airspace opacities likely represent pulmonary edema. Correlate clinically for evidence of a superimposed infectious/inflammatory pneumonitis. 3. Small pleural effusions. ACT 112: Negative or not required by law. Electronically signed by: Alexis Sharpe M.D. 12/23/2021 11:26 AM Discharge Plan Visit Data Chief Complaint: Cardiac Assessment Stated Complaint: Chest Pain, SOB ED Provider: Chapito Blair Discharge Problem: Acute respiratory failure with hypoxia, Lactic acidosis, ST elevation myoc ardial infarction (STEMI), Acidemia, Leukocytosis Patient Disposition: Admitted As Inpatient Discharge Instructions Interventions: ED Discharge Assessment Last Done: 12/23/21 12:33
[2021-12-23 11:20] LABS: Base Excess VBG -8.9 mEq/L; HCO3 VBG 20 mmol/L; Oxygen Saturation VBG < 60.0 %; PCO2 VBG 53 mmHg (38-50); PO2 VBG 28 mmHg; pH VBG 7.18 (7.36-7.41)
--- NOTE | 2021-12-23 11:29 | XRay Report ---
SINGLE VIEW CHEST CLINICAL HISTORY: Atypical chest pain. FINDINGS: An AP, portable, upright chest radiograph is compared to study dated 08/14/2014. The examina tion is degraded by portable technique and apical lordotic positioning. The heart is enlarged. There is pulmonary vascular congestion. There are asymmetric airspace opacities, right greater than left. S mall pleural effusions are suggested with bibasilar consolidation. No pneumothorax is seen. The skele jason structures are osteopenic. The bony thorax is grossly intact. Fusion hardware is noted in the cer vical spine. IMPRESSION: 1. Cardiomegaly with evidence of congestive failure. 2. Slightly asymmetric bilateral airspace opacities likely represent pulmonary edema. Correlate clini karen for evidence of a superimposed infectious/inflammatory pneumonitis. 3. Small pleural effusions. ACT 112: Negative or not required by law. Electronically signed by: Alexis Sharpe M.D. 12/23/2021 11:26 AM
[2021-12-23] MEDS ORDERED: VANCOMYCIN CONSULT ACTIVE PRN (11:33)
[2021-12-23] MEDS ORDERED: VANCOMYCIN HCL 2,750 MG in SODIUM CHLORIDE 0.9% 500 ML IV ONE (11:33)
[2021-12-23] MEDS ORDERED: CEFEPIME 2,000 MG/20 ML VIAL IV STA (11:33)
[2021-12-23 11:42] LABS: Alanine Aminotransferase 24 U/L (7-52); Albumin Globulin Ratio 1.3 (0.9-2); Albumin Level 3.9 gm/dl (3.4-5.0); Alkaline Phosphatase 111 U/L (34-104); Anion Gap 17 (3-11); Aspartate Aminotransferase 56 U/L (13-39); BUN Creatinine Ratio 6.8 (10-20); Bilirubin,Total 0.7 mg/dl (0.2-1.0); Blood Urea Nitrogen 10 mg/dl (6-23); Calcium 10.2 mg/dl (8.5-10.1); Carbon Dioxide 19 mmol/L (21-32); Chloride 92 mmol/L (98-107); Est GFR (African American) 52.9 ml/min; Est GFR (Non-African American) 45.6 ml/min; Globulin 3.1 gm/dl (2.5-4.0); Glucose 340 mg/dl (70-99(Fasting)); Lipase 41 U/L (11-82); Magnesium 1.9 mg/dl (1.7-2.4); Phosphorus 4.7 mg/dl (2.5-4.9); Potassium 3.2 mmol/L (3.5-5.1); Sodium 128 mmol/L (136-145)
[2021-12-23] MEDS ORDERED: STAT IV Infusion **Titration per Protocol STA ×3 (11:45→14:29)
[2021-12-23] MEDS ORDERED: NOREPINEPHRINE/D5W 4 MG/250 ML PLCT IV SCH (11:45)
[2021-12-23 11:47] LABS: Troponin I High Sensitivity 4078.8 pg/ml (0-20)
[2021-12-23] MEDS ORDERED: ASPIRIN CHEW 324 MG PO STA (11:51)
[2021-12-23] MEDS ORDERED: ACETAMINOPHEN 1,000 MG/100 ML VIAL IV STA (11:52)
[2021-12-23 11:53] LABS: Basophils # (auto) 0.09 K/uL (0-0.2); Basophils % (auto) 0.5 %; Echinocytes 1+; Eosinophils # (auto) 0.37 K/uL (0-0.50); Eosinophils % (auto) 2.1 %; Immature Granulocytes # (auto) 0.12 K/uL (0.00-0.02); Immature Granulocytes % (auto) 0.7 %; Lymphocytes # (auto) 5.25 K/uL (1.2-3.4); Lymphocytes % (auto) 30.3 %; Monocytes % (auto) 7.5 %; Neutrophils # (auto) 10.21 K/uL (1.4-6.5); Neutrophils % (auto) 58.9 %
--- NOTE | 2021-12-23 12:03 | History & Physical Report ---
Date of Service December 23, 2021 Assessment & Plan (1) Acute myocardial infarction: Plan: History and clinical presentation is c/w acute PA/ACS with resulting cardiogenic shock. He is s/p asa, nitro. He continues with ongoing chest pain and is critically ill. He is going to the clinical laboratory scientist for emergency cardiac catheterization by Dr Chris Choudhury. Cath findings will dictate his cardiac care plan. Once post-cath and in the ICU obtain urgent echo to assess LV function and wall motion. Serial troponins. MANDEEP, BB, and CCB all will be on hold due to his shock. Check lipids and Hba1C in the am. Defer additional Rx to cardiology & ICU attendings. (2) Cardiogenic shock: Plan: 2nd to #1. Defer pressor/inotropic Rx to ICU attending & cardiology. Levophed started in ER with improvement in MAP to about 65 just prior to his heart catheterization. Hold all home BP meds. I do not believe there is any element of septic shock. Procal is negative. Leukocytosis is likely 2nd to #1. Consider random cortisol level to be complete. (3) Acute CHF: Plan: Clinically & radiographically he has evidence of acute systolic CHF. See #1 and #2 above. Defer Rx to cardiology/ICU attending. (4) Acute respiratory failure with hypoxia and hypercapnia: Plan: 2nd to #1, #2, #3. #2 has led to severe lactic acidosis. He will need serial lactates. Currently he is comfortable on BIPAP. Repeat ABG shows improvement in his acid- base status and pCO2. I cannot rule out that intubation/mech ventilation will be needed, however. Either way he will be admitted to ICU. Defer respiratory management to ICU attending. I have low suspicion for pulmonary infection at this time thus will defer on ongoing IV antibiotics. (5) Hyponatremia: Plan: Multifactorial including "pseudohyponatremia" (corrected Na is 133), mild ANDREY, and acute CHF. Treat the cardiac issues. Sodium level should improve with time. Serial BMPs. (6) Acute kidney injury: Plan: ATN/Cardiorenal in the setting of #1, #2. Treat the cardiac issues, support the low BP with pressors, cardiac cath for revascularization, etc. At high risk of worsening renal function given his multiorgan failure. Serial BMPs will be needed. (7) Lactic acidosis: Plan: 2nd to above. Repeat lactate upon ICU admission will be needed. (8) Hypokalemia: Plan: Replace with KCL 20meq IV x 1 now and serial rechecks. mag level noted to be normal. (9) Type 2 diabetes mellitus: Plan: ICU glycemic protocol. Check HbA1C. (10) Essential hypertension: Plan: Hold all home BP meds. Will ultimately need BB, MANDEEP or ARB resumed, etc. (11) Chewing tobacco nicotine dependence: Plan: Consider low-dose nicoderm patch if desired. (12) Parkinson disease: Plan: vs benign tremor. medical record states he has a dx of PD, but I don't see any formal assessment by neurology to confirm such diagnosis. either way nothing acute at this time. (13) DVT prophylaxis: Plan: defer med selection to ICU attending (14) Abnormal EKG: Plan: I am uncertain if there is an element of transient AV block (Mobitz). If present this is secondary to ischemia and should improve with revascularization via heart cath. Monitor carefully; defer any additional Rx to cardiology. Plan extensively updated at bedside care d/w ICU attending, Dr Yoder, and cardiology attending, Dr Garg total critical care time 60 minutes including complex care coordination of this critically ill gentleman History of Present Illness Chief Complaint: severe shortness of breath, chest pain Primary Care Provider: Darwin Villalba 76yo male with prior h/o alcoholism - sober x 30+ years; HTN; T2DM; chronic tremor; and chronic tobacco use (chewing tobacco) presents from home via EMS with 10/10 chest pain and severe shortness of breath. Symptoms actually began about 1 week while he & his family were camping at [facility]. He noted dyspnea on exertion with minimal activity throughout most of last week. He has a chronic cough but it has been unchanged. No fevers or chills. Sometime last week he developed intermittent exertional chest pain/pressure. This occurred several times each day. He did not tell his or family about the symptoms. [place] from the park on afternoon and his noted that the dyspnea on exertion was quite severe. He had to stop to catch his breath with carrying items to their car. Wednesday AM about 0200 he experienced an episode of chest pressure - central - and thought it was indigestion. Thus he took an OTC stomach aid for such. Then, over the weekend, the symptoms kept reoccurring - LEHMAN with chest pressure/pain, relieved with rest. On Wednesday he noted right arm discomfort/numbness that was fairly persistent. This is unusual for him. He did not have any left arm pain, jaw pain, or neck pain. He did have sweats with episodes of chest discomfort/dyspnea. This AM his symptoms peaked and he was in significant respiratory distress. His states he looked [place]/severely pale/ashen. He was having active chest pain/pressure. 911 was called about this time and EMS was summoned to his home. Apparently his BP had been very high this am - 180s or higher. When EMS arrived 100% nonrebreather was applied and he was given 2 SL nitros for his chest pain. Upon ER arrival his SBP was in the 80s. Levophed was ordered, and BIPAP was applied for his respiratory distress and respiratory acidosis. Asa 325mg x 1 along with albuterol was administered. IV antibiotics were also given in the event he had an element of pneumonia. STAT cardiology consult was called and Dr Nir Garg from [facility] advised emergency cardiac catheterization for concern of acute PA/ACS. Allergies Allergy/AdvReac Type Severity Reaction Status Date / Time oxycodone [From OxyIR] AdvReac Severe Delirium Unverified 12/23/21 11:44 Home Medications Medication Instructions Recorded Confirmed Type amlodipine 10 mg tablet 10 mg PO QAM 12/23/21 12/23/21 History lisinopril 40 mg tablet 40 mg PO BID 12/23/21 12/23/21 History meloxicam 15 mg tablet 15 mg PO QAM 12/23/21 12/23/21 History metformin 500 mg tablet 500 mg PO BIDM 12/23/21 12/23/21 History metoprolol succinate 50 mg 50 mg PO QAM 12/23/21 12/23/21 History tablet,extended release 24 hr phenylephrine HCl 10 mg tablet 10 mg PO QAM 12/23/21 12/23/21 History (Sudafed PE) temazepam 15 mg capsule 15 mg PO HS PRN Insomnia 12/23/21 12/23/21 History Past Med/Surg History Medical History (Updated 12/23/21 @ 13:48 by Tiburcio Fong) Arthritis Gonzalez's palsy Cervical spine fracture 2004 - s/p ORIF [facility] [place] Chewing tobacco nicotine dependence Essential hypertension History of alcoholism Parkinson disease vs chronic benign tremor Type 2 diabetes mellitus Surgical History (Updated 12/23/21 @ 13:20 by Tiburcio Fong) H/O cervical spine surgery History of carpal tunnel release History of total left knee replacement S/P appendectomy Family History (Updated 12/23/21 @ 13:17 by Tiburcio Fong) Father Coronary heart disease Mother Brain cancer Brother Cancer Brother Suicide Social History (Updated 12/23/21 @ 13:18 by Tiburcio Fong) Smoking Status: Never smoker Tobacco Type: Smokeless Tobacco (Dip or Chew) Hx Alcohol Use: Yes Alcohol type: beer Alcohol type Comment: 1 case/day x many years; quit 30+ years ago Preferred Language: Italian marital status: Current Living Situation: Spouse Current Living Situation Comment: lives with in [place] current occupational status: retired current occupation: worked for [employer] How many Children do You have: 2 Feels Safe at Home: Yes Review of Systems Review of Systems: gen - no fevers, no chills; "poor" appetite per , but no change in this chronic issue; no weight changes eyes - no recent visual changes HENT - no dysphagia; no ear pain or sore throat; +chronic congestion neck - chronic pain CV - numerous episodes of exertional chest pain x several days pulm - chronic cough; severe LEHMAN this week GI - mild nausea but no emesis; no abd pain - no voiding symptoms musculo - right arm pain yesterday/today neuro - chronic tremor; right arm numbness yesterday endo - BSGs < 200 per skin - no rash Physical Exam Physical Exam: gen - looks unwell, mild pallor, BIPAP in place, mild tachypnea eyes - PERRL mouth - BIPAP mask in place, MMM neck - ?JVD present but difficult to tell because of BIPAP straps, no masses CV - RRR, s1 s2, no obvious murmur lungs - mild bibasilar fine rales, mild tachypnea, no retractions abd - protuberant/mildly distended, BS+, mildly tender high epigastric region, no HSM ext - no edema, cool to touch, pulses <1+ b/l neuro - no focal motor weakness, 5/5 strength upper & lower extremities, DTRs 2+ b/l skin - no rash psych - awake, alert lymph - no cervical lymph nodes musculo - scar over L knee Results & Data Results & Data ([facility]) Vital Signs (Past 12 Hours) Vital Signs Temp Pulse Pulse Resp BP BP Pulse Ox 12/23/21 11:18 66 26 H 80/51 L 94 12/23/21 11:04 64 26 H 97 12/23/21 11:04 58 L 23 97 12/23/21 10:45 35.9 C L 62 29 H 89/70 L 91 12/23/21 10:44 92 O2 Del Method O2 Flow Rate FiO2 12/23/21 11:18 CPAP 12/23/21 11:04 60 12/23/21 11:04 BiPAP 60 12/23/21 10:45 Non-rebreather 15 12/23/21 10:44 Non-rebreather 15 Laboratory Results Laboratory Results - last 24 hr 12/23/21 12/23/21 12/23/21 10:56 11:00 11:00 WBC 17.34 H RBC 5.26 Hgb 15.1 POC Hgb Hct 46.9 POC Hct MCV 89.2 MCH 28.7 MCHC 32.2 RDW Std Deviation 45.6 RDW Coeff of Suy[place] 14.1 Plt Count 344 MPV 9.9 Immature Gran % (Auto) 0.7 Neut % (Auto) 58.9 Lymph % (Auto) 30.3 Roosevelt % (Auto) 7.5 Eos % (Auto) 2.1 Baso % (Auto) 0.5 Neut # (Auto) 10.21 H Lymph # (Auto) 5.25 H Roosevelt # (Auto) 1.30 H Eos # (Auto) 0.37 Baso # (Auto) 0.09 Immature Gran # (Auto) 0.12 H Blood Smear Review Pending Echinocytes 1+ POC pH POC pCO2 POC pO2 POC HCO3 POC Total CO2 POC Base Excess POC ABG O2 Sat VBG pH VBG pCO2 VBG pO2 VBG HCO3 VBG O2 Saturation VBG Base Excess POC Sodium Sodium 128 L POC Potassium Potassium 3.2 L Chloride 92 L Carbon Dioxide 19 L Anion Gap 17 H BUN 10 Creatinine 1.48 H Est Cr Clr Drug Dosing Not Reportable Est GFR ( Amer) 52.9 Est GFR (Non-Af Amer) 45.6 BUN/Creatinine Ratio 6.8 L Glucose 340 H* Lactate Calcium 10.2 H Phosphorus 4.7 Magnesium 1.9 Total Bilirubin 0.7 AST 56 H ALT 24 Alkaline Phosphatase 111 H Total Creatine Kinase Troponin I High Sens 4078.8 H* Total Protein 7.0 Albumin 3.9 Globulin 3.1 Albumin/Globulin Ratio 1.3 Lipase 41 Procalcitonin SARS-CoV-2, RNA, NAAT NEGATIVE 12/23/21 12/23/21 12/23/21 11:00 11:01 11:01 WBC RBC Hgb POC Hgb Hct POC Hct MCV MCH MCHC RDW Std Deviation RDW Coeff of Su[place] Plt Count MPV Immature Gran % (Auto) Neut % (Auto) Lymph % (Auto) Roosevelt % (Auto) Eos % (Auto) Baso % (Auto) Neut # (Auto) Lymph # (Auto) Roosevelt # (Auto) Eos # (Auto) Baso # (Auto) Immature Gran # (Auto) Blood Smear Review Echinocytes POC pH POC pCO2 POC pO2 POC HCO3 POC Total CO2 POC Base Excess POC ABG O2 Sat VBG pH VBG pCO2 VBG pO2 VBG HCO3 VBG O2 Saturation VBG Base Excess POC Sodium Sodium POC Potassium Potassium Chloride Carbon Dioxide Anion Gap BUN Creatinine Est Cr Clr Drug Dosing Est GFR ( Amer) Est GFR (Non-Af Amer) BUN/Creatinine Ratio Glucose Lactate 8.0 H* Calcium Phosphorus Magnesium Total Bilirubin AST ALT Alkaline Phosphatase Total Creatine Kinase 271 H Troponin I High Sens Total Protein Albumin Globulin Albumin/Globulin Ratio Lipase Procalcitonin 0.07 SARS-CoV-2, RNA, NAAT 12/23/21 12/23/21 11:01 12:05 WBC RBC Hgb POC Hgb 13.6 L Hct POC Hct 40 L MCV MCH MCHC RDW Std Deviation RDW Coeff of Suy[place] Plt Count MPV Immature Gran % (Auto) Neut % (Auto) Lymph % (Auto) Roosevelt % (Auto) Eos % (Auto) Baso % (Auto) Neut # (Auto) Lymph # (Auto) Roosevelt # (Auto) Eos # (Auto) Baso # (Auto) Immature Gran # (Auto) Blood Smear Review Echinocytes POC pH 7.34 L POC pCO2 27 L POC pO2 80 POC HCO3 15 L POC Total CO2 16 L POC Base Excess -11.0 L POC ABG O2 Sat 95.0 VBG pH 7.18 L VBG pCO2 53 H VBG pO2 28 VBG HCO3 20 VBG O2 Saturation < 60.0 VBG Base Excess -8.9 POC Sodium 126 L Sodium POC Potassium 3.3 Potassium Chloride Carbon Dioxide Anion Gap BUN Creatinine Est Cr Clr Drug Dosing Est GFR ( Amer) Est GFR (Non-Af Amer) BUN/Creatinine Ratio Glucose Lactate Calcium Phosphorus Magnesium Total Bilirubin AST ALT Alkaline Phosphatase Total Creatine Kinase Troponin I High Sens Total Protein Albumin Globulin Albumin/Globulin Ratio Lipase Procalcitonin SARS-CoV-2, RNA, NAAT Diagnostic Findings Chest X-Ray 12/23/21 10:40 SINGLE VIEW CHEST CLINICAL HISTORY: Atypical chest pain. FINDINGS: An AP, portable, upright chest radiograph is compared to study dated . The examination is degraded by portable technique and apical lordotic positioning. The heart is enlarged. There is pulmonary vascular congestion. There are asymmetric airspace opacities, right greater than left. Small pleural effusions are suggested with bibasilar consolidation. No pneumothorax is seen. The skeletal structures are osteopenic. The bony thorax is grossly intact. Fusion hardware is noted in the cervical spine. IMPRESSION: 1. Cardiomegaly with evidence of congestive failure. 2. Slightly asymmetric bilateral airspace opacities likely represent pulmonary edema. Correlate clinically for evidence of a superimposed infectious/inflammatory pneumonitis. 3. Small pleural effusions. ACT 112: Negative or not required by law. Electronically signed by: Alexis Sharpe M.D. 12/23/2021 11:26 AM EKG - my reading - Mobitz 1 vs Mobitz 2 AV block? ST segment elevations anterior leads; slight ST depression III, AVF; PVCs; RBBB Code Status & VTE Plan Code Status full code Critical Care Time Critical Care Time: Yes Total Critical Care Time: 60 PG Care Time/CCT Total # of Minutes Spent Total Time Spent with Patient: Total time spent is greater than 50% in coordination of care (as documented) at patient's floor/unit and/or counseling patient: Critical Care Time: Yes Total Critical Care Time: 60 Coding Level of Care Code None Diagnoses Acute myocardial infarction I21.9 Cardiogenic shock R57.0 Acute CHF I50.9 Acute respiratory failure with hypoxia and hypercapnia J96.01; J96.02 Hyponatremia E87.1 Acute kidney injury N17.9 Lactic acidosis E87.2 Hypokalemia E87.6 Type 2 diabetes mellitus E11.9 Essential hypertension I10 Chewing tobacco nicotine dependence F17.220 Parkinson disease G20 DVT prophylaxis Z29.9 Abnormal EKG R94.31 Additional Codes Critical Care Time - Critical Care Time: Yes ([id number])
[2021-12-23] MEDS ORDERED: POTASSIUM CHLORIDE / WTR 10 MEQ/100 ML PLCT IV SCH (12:15)
[2021-12-23] MEDS ORDERED: niCARdipine HCL INJ 2.5 MG/ML 10 ML AMP ONE (12:21)
[2021-12-23] MEDS ORDERED: MIDAZOLAM HCL 1 MG/ML 2ML VIAL ONE ×5 (12:21→15:08)
[2021-12-23] MEDS ORDERED: NITROGLYCERIN/D5W 100MCG/ML 20ML SYR ONE (12:21)
[2021-12-23] MEDS ORDERED: HEPARIN (PORCINE) 1000 UNIT/ML 10 ML (CATH LAB USE ONLY) ONE ×2 (12:21→12:44)
[2021-12-23] MEDS ORDERED: fentaNYL citrate 100 MCG/2 ML VIAL ONE ×3 (12:21→15:08)
[2021-12-23 12:22] LABS: iSTAT Arterial Blood Gas HCO3 15 meg/L (19-24); iSTAT Arterial Blood Gas pCO2 27 mmHg (35-46); iSTAT Arterial Blood Gas pH 7.34 (7.35-7.45); iSTAT Arterial Blood Gas pO2 80 mmHg (80-95); iSTAT Carbon Dioxide 16 mmol/L (24-31); iSTAT Hematocrit 40 % (42-52); iSTAT Hemoglobin 13.6 g/dl (14.0-18.0); iSTAT Potassium 3.3 mmol/L (3.3-5.0); iSTAT Sodium 126 mmol/L (135-144)
[2021-12-23] MEDS ORDERED: FUROSEMIDE 40 MG/4 ML VIAL IV ONE ×3 (12:36→13:56)
[2021-12-23] MEDS ORDERED: RAPID SEQUENCE INDUCTION BAG ONE (12:56)
[2021-12-23] MEDS ORDERED: SODIUM BICARB 8.4% INJ 50 MEQ/50 ML SYR IV ONE (12:58)
[2021-12-23] MEDS ORDERED: DOPamine 400MG / 250ML D5W (Cath Lab Use ONLY) ONE (13:20)
[2021-12-23] MEDS ORDERED: AMIODARONE HCL INJ 50 MG/ML 3 ML VIAL (CATH LAB USE ONLY) ONE (13:24)
[2021-12-23] MEDS ORDERED: AMIODARONE 150MG / 100ML D5W (CATH LAB USE ONLY) ONE (13:25)
[2021-12-23] MEDS ORDERED: VASOPRESSION #-# Do NOT Titrate #-# Option IV SCH (13:30)
--- NOTE | 2021-12-23 13:41 | Cardiology Consultation ---
Date of Consultation December 23, 2021 Assessment & Plan (1) Acute respiratory failure with hypoxia and hypercapnia: -Suspect acute pulmonary edema related to her recent myocardial infarction. -agree with intravenous diuretics. -currently on Levophed to support blood pressure. -we will proceed to the cardiac catheterization laboratory. (2) Acute myocardial infarction: -Suspect he had an acute myocardial infarction within the last 7 to 10 days. -as above, will transfer to the cardiac catheterization for an urgent procedure. History of Present Illness Attending Physician: Chris Choudhury MD History of Present Illness Mr. Bustos is a 76-year-old male who presented to the emergency room today with profound shortness of breath, chest discomfort, and hypotension. I was called to the emergency room by Dr. Blair to evaluate the patient acutely. His recent history began approximately 1 to 2 weeks ago when he began to notice significant exertional dyspnea and a nonproductive cough. On occasion, when walking up a hill, he noticed chest discomfort. His symptoms progressed until the morning of presentation when he became acutely short of breath and according to the "turned blue." She called 911 and he was transported directly to the emergency room. On arrival here, the patient was significantly hypotensive and required intravenous pressors. Chest x-ray noted significant pulmonary edema and a bedside echocardiogram noted significant left ventricular dysfunction. His EKG noted an interventricular conduction delay and ST elevation in the anterior leads. I contacted Dr. Choudhury who asked that we move the patient directly to the cardiac catheterization laboratory. According to the , the patient has no prior cardiac history. He has never had a cardiac catheterization. Currently, patient is resting in bed complaining of chest discomfort and shortness of breath. Past medical and surgical history 1. Hypertension neck 2. Hypercholesterolemia 3. Diabetes mellitus 4. C-spine [id number] 5. C-spine [id number] 6. Appendectomy 7. Right TKR Social history and lives with his Retired from [employer] No tobacco Recovered alcoholic, no alcohol in 36 years. Family history No early coronary artery disease Review of systems A 10 point view systems was undertaken and negative except described above. Allergies Allergy/AdvReac Type Severity Reaction Status Date / Time oxycodone [From OxyIR] AdvReac Severe Delirium Unverified 12/23/21 11:44 Home Medications Medication Instructions Recorded Confirmed Type amlodipine 10 mg tablet 10 mg PO QAM 12/23/21 12/23/21 History lisinopril 40 mg tablet 40 mg PO BID 12/23/21 12/23/21 History meloxicam 15 mg tablet 15 mg PO QAM 12/23/21 12/23/21 History metformin 500 mg tablet 500 mg PO BIDM 12/23/21 12/23/21 History metoprolol succinate 50 mg 50 mg PO QAM 12/23/21 12/23/21 History tablet,extended release 24 hr phenylephrine HCl 10 mg tablet 10 mg PO QAM 12/23/21 12/23/21 History (Sudafed PE) temazepam 15 mg capsule 15 mg PO HS PRN Insomnia 12/23/21 12/23/21 History Patient History Medical History (Updated 12/23/21 @ 13:36 by Tiburcio Fong) Arthritis Gonzalez's palsy Cervical spine fracture 2003 - s/p ORIF [facility] Chewing tobacco nicotine dependence Essential hypertension History of alcoholism Parkinson disease vs chronic benign tremor Type 2 diabetes mellitus Surgical History (Updated 12/23/21 @ 13:20 by Tiburcio Fong) H/O cervical spine surgery History of carpal tunnel release History of total left knee replacement S/P appendectomy Family History (Updated 12/23/21 @ 13:17 by Tiburcio Fong) Father Coronary heart disease Mother Brain cancer Brother Cancer Brother Suicide Social History (Updated 12/23/21 @ 13:18 by Tiburcio Fong) Smoking Status: Never smoker Tobacco Type: Smokeless Tobacco (Dip or Chew) Hx Alcohol Use: Yes Alcohol type: beer Alcohol type Comment: 1 case/day x many years; quit 30+ years ago Preferred Language: Vietnamese marital status: Current Living Situation: Spouse Current Living Situation Comment: lives with in [place] current occupational status: retired current occupation: worked for [employer] How many Children do You have: 2 Feels Safe at Home: Yes Physical Exam Physical Exam: In general this is an obese white male lying supine on the stretcher complaining of chest pain and shortness of breath. HEENT exam is negative. Neck is supple with full carotid upstrokes. No obvious bruits. Jugular is pressure difficult to assess. Cardiovascular exam reveals a regular rhythm with distant heart sounds. Chest notes tenderness to palpation. Lungs are clear anteriorly. Abdomen is obese. Extremities reveal intact regard to pulse bilaterally. There is trace pretibial edema. Results & Data ([facility]) Vital Signs (Past 12 Hours) Vital Signs Temp Pulse Pulse Resp BP BP Pulse Ox 12/23/21 12:36 62 27 H 100 12/23/21 12:33 64 23 89/70 L 94 12/23/21 12:30 65 23 89/70 L 94 12/23/21 11:18 66 26 H 80/51 L 94 12/23/21 11:04 64 26 H 97 12/23/21 11:04 58 L 23 97 12/23/21 10:45 35.9 C L 62 29 H 89/70 L 91 12/23/21 10:44 92 O2 Del Method O2 Flow Rate FiO2 12/23/21 12:36 100 12/23/21 12:33 CPAP 12/23/21 12:30 CPAP 12/23/21 11:18 CPAP 12/23/21 11:04 60 12/23/21 11:04 BiPAP 60 12/23/21 10:45 Non-rebreather 15 12/23/21 10:44 Non-rebreather 15 Laboratory Results High-sensitivity troponin is 4078.8. CBC notes hemoglobin of 15.1 and a white count of 17.34. Electrolytes showed a sodium 120, potassium 3.2, BUN 10, creatinine 1.48, glucose of 340. Diagnostic Findings EKG notes sinus rhythm and a ventricular escape with complete heart block. There is an interventricular conduction delay and an ST elevation in the anterior leads. Chest x-ray notes cardiomegaly and pulmonary edema. PG Care Time/CCT Total # of Minutes Spent Total Time Spent with Patient: Total time spent is greater than 50% in coordination of care (as documented) at patient's floor/unit and/or counseling patient: Coding Level of Care Code 16152 Office/Outpt Visit, New Diagnoses Acute respiratory failure with hypoxia and hypercapnia J96.01; J96.02 Acute myocardial infarction I21.9
[2021-12-23] MEDS ORDERED: EPTIFIBATIDE 2 MG/ML 10 ML VIAL (CATH LAB USE ONLY) IV ONE (13:46)
[2021-12-23] MEDS ORDERED: Standard 16mcg/mL; 4 MG in 250 mL for HYPOTENSION IV SCH (14:00)
[2021-12-23] MEDS ORDERED: EPINEPHrine/NSS 4 MG/254 ML BAG IV SCH (14:00)
[2021-12-23] MEDS ORDERED: MIDAZOLAM HCL 125 MG/250 ML BAG IV PRN (14:29)
[2021-12-23] MEDS ORDERED: fentaNYL citrate 2,500 MCG/250 ML BAG IV SCH (14:30)
[2021-12-23] MEDS ORDERED: NOREPINEPHRINE BITARTRATE 1 MG/ML 4 ML VIAL (CATH LAB USE ONLY) ONE (14:43)
[2021-12-23] MEDS ORDERED: HEPARIN 25000 UNIT/500 ML D5W IV ONE (14:49)
[2021-12-23 14:50] LABS: Basophils # (auto) 0.04 K/uL (0-0.2); Basophils % (auto) 0.2 %; Eosinophils # (auto) 0.04 K/uL (0-0.50); Eosinophils % (auto) 0.2 %; Hematocrit (blood only) 41.3 % (40.1-51.0); Hemoglobin 13.7 g/dl (14.0-18.0); Immature Granulocytes # (auto) 0.14 K/uL (0.00-0.02); Immature Granulocytes % (auto) 0.6 %; Lymphocytes % (auto) 8.3 %; Mean Corpuscular Hemoglobin 28.4 pg (25.0-34.0); Mean Corpuscular Hgb Conc 33.2 g/dL (32.0-36.0); Mean Corpuscular Volume 85.7 fL (80.0-100.0); Mean Platelet Volume 9.9 fL (9.4-12.4); Monocytes # (auto) 1.15 K/uL (0.24-0.82); Monocytes % (auto) 5.3 %; Neutrophils % (auto) 85.4 %; Platelet Count 267 K/uL (130-400); RDW Coefficient of Variation 14.1 % (11.5-14.5); RDW Standard Deviation 43.8 fL (36.4-46.3); Red Blood Count 4.82 M/uL (4.63-6.08); White Blood Count 21.57 K/ul (4.8-10.8)
--- NOTE | 2021-12-23 14:54 | Cardiac Catheterization ---
[facility] Data: Cloth Booker Cardiac Status Clinical evaluation leading to the procedure CAD Presenation: STEMI Anginal Classification: CCS IV Diagnostic Physicians Name: Chris Choudhury MD Closure Device Recommendations: PCI without planned CABG and CABG Cardiac Cath Procedure Full Procedure Date December 23, 2021 Pre-Procedure Diagnosis Pre-Procedure Diagnosis: STEMI AUC Score AUC Score: 9 Post-Procedure Diagnosis Post-Procedure Diagnosis: Severe CAD, Successful PCI and Elevated Intracardiac Pressures Procedure(s) Performed Procedure(s) Performed: Coronary Angiography, Left Heart Cath, Right Heart Cath, PTCA, Temporary Pacemaker, Ultrasound Guided Vascular Access, Defibrillation and Procedure (Impella CP placement) [employer] Mel[employer] Helper Chris Choudhury MD [employer] [place] Estimated Blood Loss Estimated Blood Loss: 25 Medication(s) Medication(s): Dopamine, Fentanyl, Heparin, Integrilin, Lidocaine 1%, Norepinephrine and Versed Medication(s): Vasopressin Summary of Findings Indication: STEMI 2 days of stuttering chest pain, shortness of breath. Acute severe pain beginning this morning. On presentation in heart failure, hypotensive to 80s. ECG showed right bundle branch block with subtle anterior ST elevations. Access: 6 Fr right radial artery, 14 Fr right M1A1 TANK CREWMAN, 7 Fr right CFV, 8 Fr left CFV Catheters: EBU 3.5, diagnostic JR4, pigtail Findings: LM -normal caliber, no significant disease LAD -100% proximal acute occlusion. After flow reestablished diffuse calcified proximal to mid disease. 90% calcified mid stenosis after second diagonal. Mild disease in the remainder of vessel and wraps around apex. Medium D1 with 70% proximal stenosis Circumflex -medium caliber 70% mid, medium OM 2 with sequential 70 to 80% lesions RCA -dominant, medium caliber, diffuse mid disease up to 95%, distal 100% chronic total occlusion. PDA/PLB's fill retrograde via left to right collaterals from circumflex. 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 Blair from the ED with elective intubation Right M1A1 TANK CREWMAN access obtained under ultrasound guidance Following intubation brief complete heart block requiring atropine, epinephrine and placement of temporary pacemaker Later developed sustained VT with worsening hypotension requiring defibrillation x2 Initial LVEDP prior to Impella 42 Impella CP placed to LV, auto settings led to improved MAPs to 70s Initially still difficult to oxygenate with O2 sats still in 60s on 100% FiO2, 15 of PEEP Received an additional 120 mg IV Lasix. Repeat angiography of LAD showed reocclusion of LAD Proximal LAD predilated with 2.5 balloon, with aid of a GuideLiner mid LAD partially dilated with 2.5 balloon IC Integrilin administered Post angioplasty had MERARY II-III flow Improved hemodynamics, oxygenation after LAD flow reestablished [place] placed via left common femoral vein under ultrasound guidance Right heart catheterization (post angioplasty of LAD, Impella) RV 43/20 PA 43/25 (34) PCW 34 PA sat 52% At completion of procedure: MERARY II-III flow in LAD with moderate residual proximal LAD disease and moderate to severe calcified mid LAD disease (unable to pass balloon into latemid LAD). Impella CP in place, auto settings with output of 3.8 to 4.0 L Dripsnorepinephrine 0.3 , vasopressin 0.4, amiodarone, heparin. Fentanyl/versed boluses. Final gas: 7.30/43/81/22 - Vent settings: FiO2 100%, PEEP 12, TV 470, Rate 24 Summary: 1. Anterior STEMI 2. 100% acute proximal LAD. 80% calcified mid LAD 3. Severe nonculprit CAD 80% mid circumflex, 80% mid OM 2 95% mid RCA, 100% distal RCA [employer]SULTANT with [id number] collaterals 4. Cardiogenic shock 5. Acute respiratory failure 6. Acute heart failure (initial LVEDP 42). Elevated right-sided filling pressures 7. Transient complete heart block 8. Sustained VT requiring defibrillation x2 9. Successful PTCA of proximal to mid LAD with 2.5 balloon and reestablished MERARY II-III flow 10. Successful placement of Impella CP device Recommendations: Plan to transfer to [facility] cardiac ICU for higher level of ICU care, possible CABG. Hemodynamics Rest Ao:: 100/60/86 Final Ao: 135/98/112 LV: 116/42 Recommendations Recommendations: PCI without planned CABG and CABG Specimens Specimens: None Radiation Exposure (mGy) 4557 Contrast (mls) 120 Fluids (cc crystalloids) Fluids (cc crystalloids): 200 Anesthesia Moderate (1420-1264) Procedural Complication(s) None Disposition [facility] cardiac intensive care unit I attest to the content of the Intraoperative Record and any orders documented therein. Any exceptions are noted below. [facility] [place] Procedure Codes Cardiac Catheterization Procedure 1: Cardiovascular Cath Procedures: 98040 Coronaries & LHC (+/-LV) & RHC Therapeutic Services & Ancillary Proc Procedure 1: Cardiovascular Tx and Anc Procedures: 02430 Ultrasonic Guidance Vascular Access Procedure 2: Cardiovascular Tx and Anc Procedures: 21407 Ultrasonic Guidance Vascular Access Procedure 3: Cardiovascular Tx and Anc Procedures: 53391 Cardioversion Procedure 4: Cardiovascular Tx and Anc Procedures: 18912 Insertion of Percutaneous Ventricular Assist Device Procedure 5: Cardiovascular Tx and Anc Procedures: 73926 Temp Pacer Insert Procedure 6: Cardiovascular Tx and Anc Procedures: 88270 Ultrasonic Guidance Vascular Access Moderate Sedation Procedure 1: Sedation/Anesthesia: 66261 Mod Sedation by the same physician;Init15 Min Child Age 5 & Up Procedure 2: Sedation/Anesthesia: 59531 Mod Sedation by the same physician; Ea [id number] Minutes Stenting Procedure 1: Cardiovascular Stent Procedures: 08354 Perc transluminal revascularization of acute sub/total occl, aMI PG Care Time/CCT Total # of Minutes Spent Total Time Spent with Patient: Total time spent is greater than 50% in coordination of care (as documented) at patient's floor/unit and/or counseling patient:
[2021-12-23] MEDS ORDERED: SUCCINYLCHOLINE CHLORIDE 20 MG/ML 10 ML VIAL IV ONE (15:25)
[2021-12-23] MEDS ORDERED: ETOMIDATE 2 MG/ML 20 ML VIAL IV ONE (15:25)
[2021-12-23 15:47] LABS: Alanine Aminotransferase 76 U/L (7-52); Albumin Globulin Ratio 1.2 (0.9-2); Albumin Level 3.2 gm/dl (3.4-5.0); Alkaline Phosphatase 88 U/L (34-104); Anion Gap 21 (3-11); BUN Creatinine Ratio 8.6 (10-20); Bilirubin,Total 0.9 mg/dl (0.2-1.0); Blood Urea Nitrogen 14 mg/dl (6-23); Calcium 8.4 mg/dl (8.5-10.1); Carbon Dioxide 19 mmol/L (21-32); Chloride 92 mmol/L (98-107); Est GFR (African American) 47.1 ml/min; Est GFR (Non-African American) 40.6 ml/min; Globulin 2.7 gm/dl (2.5-4.0); Glucose 342 mg/dl (70-99(Fasting)); Sodium 132 mmol/L (136-145); Total Protein 5.9 gm/dl (6.0-8.3)
--- NOTE | 2021-12-23 17:19 | Electrocardiogram Report ---
Test Reason : Blood Pressure : / mmHG Vent. Rate : 066 BPM Atrial Rate : 064 BPM P-R Int : 000 ms QRS Dur : 170 ms QT Int : 488 ms P-R-T Axes : 000 -78 078 degrees QTc Int : 511 ms Sinus rhythm with complete heart block Ventricular escape rhythm Left axis deviation Right bundle branch block Septal infarct , age undetermined Possible Lateral infarct , age undetermined Abnormal ECG When compared with ECG of 23-DEC-2021 10:41, (unconfirmed) Significant changes have occurred Confirmed by Elvis Garg ([id number]) on 12/23/2021 5:19:08 PM Referred By: Confirmed By:Elvis Garg
--- NOTE | 2021-12-23 17:25 | Electrocardiogram Report ---
Test Reason : Blood Pressure : / mmHG Vent. Rate : 060 BPM Atrial Rate : 120 BPM P-R Int : 000 ms QRS Dur : 170 ms QT Int : 496 ms P-R-T Axes : 075 -79 081 degrees QTc Int : 496 ms Sinus tachycardia with complete heart block and Wide QRS rhythm Left axis deviation Right bundle branch block Anterolateral infarct , age undetermined Abnormal ECG When compared with ECG of 23-DEC-2021 11:06, (unconfirmed) Sinus rhythm is now with complete heart block Confirmed by Elvis Garg ([id number]) on 12/23/2021 5:25:26 PM Referred By: REFERRED SELF Confirmed By:Elvis Garg
[2021-12-24 06:49] LABS: iSTAT Arterial Blood Gas HCO3 15 meg/L (19-24); iSTAT Arterial Blood Gas pCO2 38 mmHg (35-46); iSTAT Arterial Blood Gas pH 7.19 (7.35-7.45); iSTAT Arterial Blood Gas pO2 51 mmHg (80-95); iSTAT Carbon Dioxide 16 mmol/L (24-31)
[2021-12-24 06:49] LABS: iSTAT Arterial Blood Gas HCO3 13 meg/L (19-24); iSTAT Arterial Blood Gas pCO2 30 mmHg (35-46); iSTAT Arterial Blood Gas pH 7.25 (7.35-7.45); iSTAT Arterial Blood Gas pO2 183 mmHg (80-95); iSTAT Carbon Dioxide 14 mmol/L (24-31)
[2021-12-24 06:49] LABS: iSTAT Arterial Blood Gas HCO3 22 meg/L (19-24); iSTAT Arterial Blood Gas pCO2 44 mmHg (35-46); iSTAT Arterial Blood Gas pO2 81 mmHg (80-95); iSTAT Carbon Dioxide 23 mmol/L (24-31)
[2021-12-24 06:49] LABS: iSTAT Arterial Blood Gas HCO3 23 meg/L (19-24); iSTAT Arterial Blood Gas pCO2 50 mmHg (35-46); iSTAT Arterial Blood Gas pH 7.28 (7.35-7.45); iSTAT Arterial Blood Gas pO2 54 mmHg (80-95); iSTAT Carbon Dioxide 25 mmol/L (24-31)
[2021-12-24 06:49] LABS: iSTAT Arterial Blood Gas HCO3 25 meg/L (19-24); iSTAT Arterial Blood Gas pCO2 58 mmHg (35-46); iSTAT Arterial Blood Gas pH 7.25 (7.35-7.45); iSTAT Arterial Blood Gas pO2 33 mmHg (80-95); iSTAT Carbon Dioxide 27 mmol/L (24-31)
== END 2021-12-23 15:26 | disposition short-term general hospital (02) | DRG 215 ==
LOC: ED 10:36 → OR 12:30 → 1E 12:33